=== PATIENT | female | born 1950 | race Caucasian/White ===

== ENCOUNTER 2018-01-31 06:08 | Day surgery (SDC) | payer MEDICARE ==
[~2018-01-31 06:08] MED LIST: Buffered Lidocaine 0.9% SYRIN* 5 ML/SYR SYRINGE INTRADERM ONE
[2018-01-31] MEDS ORDERED: Buffered Lidocaine 0.9% SYRIN* 5 ML/SYR SYRINGE ONE (06:09)
[2018-01-31] MEDS ORDERED: Lidocaine 2% PF * 5 ML VIAL ONE (06:47)
[2018-01-31] MEDS ORDERED: Propofol* 500 MG/50 ML BTL ONE (06:47)
[2018-01-31] MEDS ORDERED: Propofol* 10 MG/ML 20 ML BTL IV PUSH ONE (06:47)
[2018-01-31] MEDS ORDERED: KETAMINE HCL* 50 MG/ML 10 ML VIAL ONE (06:47)
[2018-01-31] MEDS ORDERED: Midazolam* 1 MG/ML 2 ML VIAL (2 MG) ONE (06:52)
[2018-01-31] MEDS ORDERED: fentaNYL* 50 MCG/ML 2 ML VIAL (100 MCG VIAL) ONE (06:53)
[2018-01-31] MEDS ORDERED: Bupivacaine 0.25% SDV* 30 ML ONE ×2 (07:20→07:26)
[2018-01-31] MEDS ORDERED: EPHEDrine (Pressors)* 50 MG/ML VIAL ONE ×2 (07:48→08:28)
[2018-01-31] MEDS ORDERED: Ketorolac INJ* 30 MG/ML 1 ML VIAL ONE (07:55)
[2018-01-31] MEDS ORDERED: Dexamethasone IV* 4 MG/ML 1 ML (4 MG) ONE (07:55)
[2018-01-31] MEDS ORDERED: Ondansetron INJ* 2 MG/ML VIAL ONE (07:55)
[2018-01-31] MEDS ORDERED: Naloxone* 0.4 MG/ML 1 ML VIAL IV PRN (08:18)
[2018-01-31] MEDS ORDERED: Acetaminophen TAB* 325 MG PO PRN (08:18)
[2018-01-31] MEDS ORDERED: fentaNYL* 50 MCG/ML 2 ML VIAL (100 MCG VIAL) IV PRN (08:18)
[2018-01-31] MEDS ORDERED: Metoclopramide IV* 5 MG/ML 2 ML VIAL ONE (08:47)
[2018-01-31 09:34] VITALS: BP 143/82
--- NOTE | 2018-01-31 15:15 | OP ---
DATE OF OPERATION: 01/31/18 - [facility] DATE OF : 54 SURGEON: Simone Catherine MD OTOLARYNGOLOGY NURSE: CHIKI Pantoja. An operator assistant i cementing was needed for the entirety of the procedure to aid in positioning of the arm and retraction. ANESTHESIOLOGIST: Dr. Khan. ANESTHESIA: General. 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 OPERATIVE PROCEDURE: Right thumb carpometacarpal arthroplasty with trapeziectomy and Arthrex internal brace thumb suspension. INDICATIONS: Sonia is 68-year-old. She has had an MP joint fusion in the past and she has had few surgeries on the hand over the years. Her main complaint is thumb- based pain. She has done very well with a left basal joint arthroplasty. We had talked about the risks and benefits. She had wanted to proceed with surgery. ESTIMATED BLOOD LOSS: 2 mL. COMPLICATIONS: None. FINDINGS: See above and below. DESCRIPTION OF PROCEDURE: Sonia was seen in the preoperative holding area. The correct side, site, and procedure were identified. We came back to the operating room where the arm was prepped and draped in the usual fashion. A time-out was performed. I began by exsanguinating the arm with the Esmarch and the tourniquet was inflated to 250 mmHg. We placed a Marcaine around the anticipated incisions. I then made a 2 to 3 cm incision over the dorsal radial thumb. Dissection was carried down longitudinally to preserve the traversing sensory branches. A subperiosteal and capsule flaps were raised to expose the basal joint, very severely arthritic scaphotrapezial and trapeziotrapezoid joints. Once the soft tissue was released from the trapezium, the trapezium was excised in piecemeal with rongeur until it was excised in its eternity. Severe degeneration was noted. The FCR tendon was near-ruptured in the base of the wound due to her rheumatoid arthritis. At this point, I went ahead and made a drill hole in the base of the second metacarpal and then 1 in the dorsal radial corner of the thumb-based metacarpal. I then placed the Arthrex suture anchor together with the suture tape into the metacarpal wound. This held very securely. I then set appropriate tension with the thumb adducted against the second metacarpal and out to length. The suture tape was tensioned and the second suture anchor was placed in the base of the metacarpal in standard fashion. This held very well, I could not oppose the base of the metacarpal to the distal pull of the scaphoid. Everything was looking good, so I irrigated out the wound. The capsule was closed with 3-0 Vicryl suture, skin was closed with 4-0 nylon suture , and a thumb spica splint was applied. Tourniquet was deflated, hand pinked up immediately. She was taken to recovery room in stable condition. [id number]/[facility] #: [id number] MARIANN
== END 2018-01-31 10:09 | disposition home or self-care (01) ==
LOC: OR 06:08
PROVIDERS: ATTEND Orthopaedic Surgery Hand Surgery
DX: M18.11 Unilateral primary osteoarthritis of first carpometacarpal joint, right hand (principal); M05.841 Other rheumatoid arthritis with rheumatoid factor of right hand; I10 Essential (primary) hypertension; F41.9 Anxiety disorder, unspecified
CPT/HCPCS: C1713; J1100; J1885; J2250; J2405; J2704; J2765; J3010